=== PATIENT | male | born 1985 | race African-American/Black ===

== ENCOUNTER 2018-12-22 19:36 | Emergency (ER) | payer MEDICAID, OTHER ==
[~2018-12-22] VITALS: Ht 177.8 cm; Wt 88.6 kg
[2018-12-22 19:38] VITALS: Ht 177.8 cm; Wt 88.6 kg
--- NOTE | 2018-12-22 20:11 | ERD ---
ER Documentation Chief Complaint Chief Complaint BIB [id number] for knee pain s/p playing basketball HPI 33-year-old male presenting after feeling a sudden "pop" in his right knee while playing possible. He states he was trying to jump for a shot and that is when he felt it. He denies any associated numbness or tingling in his leg. ROS All systems reviewed and are negative except as per history of present illness. Medications Home Meds Active Scripts Hydrocodone/Acetaminophen (Flushing 5-325 Tablet) 1 Each Tablet, 1 TAB PO Q6H PRN for SEVERE PAIN LEVEL 7-10, #10 TAB Prov:VLADIMIR CALVILLO MD 12/22/18 Allergies Allergies: Coded Allergies: No Known Allergy (Unverified , 12/22/18) PMhx/Soc Medical and Surgical Hx: pt denies Medical Hx, pt denies Surgical Hx Hx Alcohol Use: No Hx Substance Use: No Hx Tobacco Use: No Smoking Status: Never smoker FmHx Family History: No diabetes Physical Exam Vitals Vital Signs Date Temp Pulse Resp B/P (MAP) Pulse Ox O2 O2 Flow FiO2 Time Delivery Rate 12/22/18 98.0 54 16 114/81 Room Air 21:31 (92) 12/22/18 98.3 72 16 121/74 98 19:38 (90) Physical Exam Const: No acute distress Head: Atraumatic Eyes: Normal Conjunctiva ENT: Normal External Ears, Nose and Mouth. Neck: Full range of motion. No meningismus. Resp: Clear to auscultation bilaterally Cardio: Regular rate and rhythm, no murmurs Abd: Soft, non tender, non distended. Normal bowel sounds Skin: No petechiae or rashes Back: No midline or flank tenderness Ext: Right lower extremity exam: No deformities noted. High riding patella. There is a defect inferior to the patella, unable to palpate patellar tendon. Mild swelling around the patella. Full passive range of motion at the knee. Unable to straighten the leg at the knee Neur: Awake and alert Psych: Normal Mood and Affect Procedures/MDM EMERGENT LABS AND DIAGNOSTIC STUDIES: Radiology Results as interpreted by Radiology below were reviewed by Eloy Calvillo MD: XR knee: Patella rosita with mild prepatellar soft tissue thickening, which can be seen with patellar tendon rupture. 19 mm bony fragment identified in the mid patellar tendon region may represent an avulsed fracture fragment. Consider MRI to further evaluate. Mild right knee degenerative change Initial Nursing notes reviewed. Previous Medical Records requested via the Electronic Health Record. EMERGENCY DEPARTMENT COURSE / MEDICAL DECISION MAKING: Patient is presenting with right patella rosita, concerning for patellar tendon rupture with likely patellar fracture on x-ray. He is neurovascularly intact. Patient was placed in a knee immobilizer and crutches were provided. Follow-up with orthopedics was recommended within 1 week as he will need surgery. Patient understands discharge plan. Prescription for pain medications provided. Return precautions discussed. Patient's blood pressure was elevated (>120/80) but appears stable without evidence of hypertensive emergency or urgency. The patient was counseled about the risks of hypertension and urged to pursue outpatient monitoring and therapy within a week with their primary care physician. VLADIMIR ACLVILLO MD Dec 22, 2018 20:11
[2018-12-22] MEDS ORDERED: HYDR-4011 PO (21:07)
[2018-12-22 21:31] VITALS: BP 114/81; PULSE 54; RESP 16
== END 2018-12-22 22:37 | disposition home or self-care (01) ==
LOC: E/R 19:36
DX: M25.561 Pain in right knee (principal)
CPT/HCPCS: 73562; Z7502; Z7610